=== PATIENT | female | born 1965 | race Caucasian/White ===

== ENCOUNTER 2017-03-04 15:24 | Emergency (ER) | payer OTHER ==
[~2017-03-04] VITALS: Ht 167.6 cm; Wt 81.6 kg
[~2017-03-04 15:24] MED LIST: PREDNISONE10 MG PO
--- NOTE | 2017-03-04 16:13 | RADIOLOGY REPORT ---
EXAMINATION: XR WRIST, RIGHT CLINICAL INFORMATION: Right wrist pain. Evaluate for fracture. COMPARISON: Right wrist films dated 04/25/2011. TECHNIQUE: AP, lateral, and oblique views of the right wrist. FINDINGS: There is a comminuted partially impacted transverse fracture of the distal radius with approximately one cortex width of radial displacement and dorsal angulation. No intra-articular extension of the fracture line is seen. The radiocarpal joint remains intact. There is slight widening of the radial ulnar joint, suggesting dissociation. Distal ulna appears intact, and the remainder of the bony structures is intact. Dorsal soft tissue swelling about the wrist is seen. IMPRESSION: 1. Comminuted partially impacted and mildly displaced transverse fracture of the distal radius is seen with dorsal angulation and overlying soft tissue swelling. 2. Suspect dissociation of the radioulnar joint.
--- NOTE | 2017-03-04 17:12 | ED HAND/WRIST INJURY COMPLAINT ---
History of Present Illness General Chief Complaint: Fall Stated Complaint: FALL, WRIST PAIN Source: patient, family Exam Limitations: no limitations Vital Signs & Intake/Output Vital Signs & Intake/Output Vital Signs Date Time Temp Pulse Resp B/P B/P Pulse O2 O2 Flow FiO2 Mean Ox Delivery Rate 03/04 1955 98.1 70 20 126/62 95 Room Air 03/04 1931 97.9 77 16 158/59 97 Room Air 03/04 1810 71 22 150/70 97 Room Air 03/04 1533 98.9 75 18 168/78 100 Room Air ED Intake and Output 03/05 0000 03/04 1200 Intake Total 120 Output Total Balance 120 Intake, Oral 120 Patient 180 lb Weight Weight Reported by Patient Measurement Method Allergies Coded Allergies: NO KNOWN ALLERGIES (03/04/17) Reconcile Medications Duloxetine HCl 30 MG CAPSULE.DR 1 CAP PO DAILY DEPRESSION (Reported) Fluoxetine HCl 20 MG CAPSULE 60 MG PO DAILY DEPRESSION (Reported) Oxycodone HCl/Acetaminophen (Percocet 5-325 MG Tablet) 5 MG-325 MG TABLET 1 TAB PO Q6H PRN PAIN Triage Note: PT TO ED FOR R WRIST PAIN AFTER FALLING HANDS FIRST INTO GRASS, OBVIOUS DEFORMITY, +ULNAR AND RADIAL PULSES, HAND WARM TO TOUCH. PLACED IN SPLINT IN TRIAGE, MEDICATED WITH 600 MG MOTRIN AND GIVE ICE PACK. Triage Nurses Notes Reviewed? yes HPI: Patient is a 52-year-old female presents complaining of right wrist pain status post fall. Patient was playing outside this afternoon when she fell onto her right outstretched hand. Pain is currently 6 out of 10. Patient is right-hand dominant. Patient reports mild numbness that radiates into her fingers. Patient denies head injury, neck pain, loss of consciousness. (SARAH ARMSTRONG) Past History Travel History Traveled to [place] past 21 day No Medical History Any Pertinent Medical History? see below for history Neurological: NONE EENT: NONE Cardiovascular: NONE Respiratory: NONE Gastrointestinal: NONE Hepatic: NONE Renal: NONE Musculoskeletal: wrist fracture Psychiatric: depression Endocrine: NONE Blood Disorders: NONE Cancer(s): NONE PUMPER GAGER/Reproductive: NONE Influenza Vaccine: 09/13/15 Surgical History Surgical History: non-contributory Psychosocial History What is your primary language Beninese Tobacco Use: Never used ETOH Use: occasional use Illicit Drug Use: denies illicit drug use Family History Hx Contributory? No (SARAH ARMSTRONG) Review of Systems Review of Systems Constitutional: Reports: no symptoms. Respiratory: Reports: no symptoms. Cardiovascular: Denies: chest pain. GI: Denies: abdominal pain. Musculoskeletal: Reports: see HPI. Neurological/Psychological: Denies: paresthesia. Hematologic/Endocrine: Denies: bruising, bleeding. Immunologic/Allergic: Denies: splenectomy. (SARAH ARMSTRONG) Physical Exam Physical Exam General Appearance: well developed/nourished, alert, awake Head: atraumatic, normal appearance Eyes: Bilateral: normal appearance. Ears, Nose, Throat: hearing grossly normal Neck: normal inspection, supple, full range of motion, no midline tenderness Cardiovascular/Respiratory: no respiratory distress Back: normal inspection, normal range of motion, no vertebral tenderness Elbow Right: normal range of motion, normal inspection, nontender Wrist Right: deformity of right wrist. Radial and ulnar pulses 2+. Hand Left: normal inspection, normal range of motion Hand Right: sensation normal in fingers to light touch Neurologic/Tendon: normal sensation Skin: capillary refill normal in right hand and fingers (SARAH ARMSTRONG) Progress Differential Diagnosis: contusion, compartment syndrome, dislocation, fracture, sprain Plan of Care: Orders Procedure Date/time Status Durable Medical Equipment 03/04 2007 Active 1722: Discussed with Dr. Chawla: try to improve alignment with reduction, can use hematoma block. Place in sugar tong splint and have follow up closely. 1800: Attempted hematoma block. Area was prepped with chlorhexidine prep. 5 mL of 1% lidocaine were injected. Patient had severe pain during injection of lidocaine. Procedure was aborted. Will perform under moderate sedation. Discussed with Dr. Loera. See moderate sedation consent and paperwork. (SARAH ARMSTRONG) Diagnostic Imaging: Viewed by Me: Radiology Read. Discussed w/RAD: Radiology Read. Radiology Impression: PATIENT: EDIE BURRELL PRESENT AGE: 52 PATIENT ACCOUNT NO: [id number] : 63 LOCATION: [facility] ORDERING PHYSICIAN: NI RICHARDS DO SERVICE DATE: 03/04/17-0599 EXAM TYPE: RAD - XRY-WRIST COMPLETE-RIGHT EXAMINATION: XR WRIST, RIGHT CLINICAL INFORMATION: Right wrist pain. Evaluate for fracture. COMPARISON: Right wrist films dated . TECHNIQUE: AP, lateral, and oblique views of the right wrist. FINDINGS: There is a comminuted partially impacted transverse fracture of the distal radius with approximately one cortex width of radial displacement and dorsal angulation. No intra-articular extension of the fracture line is seen. The radiocarpal joint remains intact. There is slight widening of the radial ulnar joint, suggesting dissociation. Distal ulna appears intact, and the remainder of the bony structures is intact. Dorsal soft tissue swelling about the wrist is seen. IMPRESSION: 1. Comminuted partially impacted and mildly displaced transverse fracture of the distal radius is seen with dorsal angulation and overlying soft tissue swelling. 2. Suspect dissociation of the radioulnar joint. DICTATED BY: GLORIA DANIELS MD DATE/TIME DICTATED:03/04/171606 CHEMICAL PRODUCTION TECHNICIAN:DONNIE DATE/TIME TRANSCRIBED:03/04/171606 CONFIDENTIAL, DO NOT COPY WITHOUT APPROPRIATE AUTHORIZATION. <Electronically signed in Other Vendor System> SIGNED BY: GLORIA DANIELS MD 03/04/17 1613, PATIENT: EDIE BURRELL PRESENT AGE: 52 PATIENT ACCOUNT NO: [id number] : 63 LOCATION: [facility] ORDERING PHYSICIAN: SARAH LAMB SERVICE DATE: 03/04/17 EXAM TYPE: RAD - XRY-WRIST 2 VIEWS RIGHT EXAMINATION: XR WRIST, RIGHT CLINICAL INFORMATION: Post reduction distal radial fracture COMPARISON: 03/04/2017 x-ray at 3:48 PM TECHNIQUE: AP and lateral views of the right wrist. FINDINGS: Comminuted distal radial fracture again noted. The alignment at the fracture site is anatomic. Soft tissue swelling present. Superimposed cast present. IMPRESSION: Status post reduction of distal right radial fracture with anatomical alignment. DICTATED BY: ENRIQUE PHILLIPS MD DATE/ TIME DICTATED:03/04/172019 CHEMICAL PRODUCTION TECHNICIAN:DONNIE DATE/TIME TRANSCRIBED: 03/04/172019 CONFIDENTIAL, DO NOT COPY WITHOUT APPROPRIATE AUTHORIZATION. < Electronically signed in Other Vendor System> SIGNED BY: ENRIQUE PHILLIPS MD 03/04/17 20 (MELLY LAMB,SARAH) Departure Departure Time of Disposition: 2007 Disposition: HOME OR SELF CARE Condition: Stable Clinical Impression Primary Impression: Distal radius fracture, right Qualifiers: Encounter type: initial encounter Fracture type: closed Fracture morphology: unspecified fracture morphology Qualified Code: S52.501A - Unspecified fracture of the lower end of right radius, initial encounter for closed fracture Referrals: EZE VELA (PCP/Family) MARY JO ENGLISH,JUAN Wilson Additional Instructions: Wear splint until you are seen by the orthopedist. Call Dr. Chawla(orthopedist) to be seen early next week for further evaluation. Return to the ER if numbness in your hand, discoloration of fingers, pain uncontrollable or worsening of symptoms. Departure Forms: Customer Survey General Discharge Information Prescriptions: Current Visit Scripts Oxycodone HCl/Acetaminophen (Percocet 5-325 MG Tablet) 1 TAB PO Q6H PRN PAIN #12 TAB (SARAH ARMSTRONG) PA/NETWORK ARCHITECT Co-Sign Statement Statement: ED Attending supervision documentation- x I saw and evaluated the patient. I have also reviewed all the pertinent lab results and diagnostic results. I agree with the findings and the plan of care as documented in the PA's/NETWORK ARCHITECT's documentation. [] I have reviewed the ED Record and agree with the PA's/NETWORK ARCHITECT's documentation. [] Additions or exceptions (if any) to the PAs/NETWORK ARCHITECT's note and plan are summarized below: [] (ADEEL LOERA MD) Procedures Splinting Manual Alignment Performed: Yes Hand-Made Type: orthoglass Splint: sugar-tong Splint Applied By: splint applied by me Pre-Proc Neuro Vasc Exam: normal Post-Proc Neuro Vasc Exam: normal Joint Reduction Joint Reduction Site: right wrist Conscious Sedation: conscious sedation, performed by Dr. Loera Reduction Attempts: 1 Pre-Procedure NV Exam: Yes Post-Procedure NV Exam: Yes Post Joint Reduction Film: joint reduced Procedural Sedation Sedation Type: moderate Indication: wrist fracture Prior Complications: none Airway: normal anatomy Preparation: plan explained to patient, hospital consent signed, oximetry during procedure, capnometry during procedu, IV access obtained, suction immediately avail, cardiac technologist used Sedation: etomidate, fentanyl Complications During/After Procedure: none Post Sedation Score: see sedation record I personally performed: procedure (sedation by Dr. Loera) Intra-Service Time: 30 minutes or less (SARAH ARMSTRONG) Procedural Sedation ASA Classification: P1 Mallampati Classification: Class 2 (ADEEL LOERA MD)
[2017-03-04] MEDS ORDERED: DULOXETINE HCL30 MG PO (19:33)
[2017-03-04] MEDS ORDERED: FLUOXETINE HCL20 M2 PO (19:33)
[2017-03-04 19:55] VITALS: BP 126/62
[2017-03-04] MEDS ORDERED: PERCOCET 5-3251 EACH PO (20:07)
--- NOTE | 2017-03-04 20:26 | RADIOLOGY REPORT ---
EXAMINATION: XR WRIST, RIGHT CLINICAL INFORMATION: Post reduction distal radial fracture COMPARISON: 03/04/2017 x-ray at 3:48 PM TECHNIQUE: AP and lateral views of the right wrist. FINDINGS: Comminuted distal radial fracture again noted. The alignment at the fracture site is anatomic. Soft tissue swelling present. Superimposed cast present. IMPRESSION: Status post reduction of distal right radial fracture with anatomical alignment.
== END 2017-03-04 20:19 ==
LOC: ERH 15:24
DX: S52.501A Unspecified fracture of the lower end of right radius, initial encounter for closed fracture (principal); W19.XXXA Unspecified fall, initial encounter; Y92.9 Unspecified place or not applicable; Y93.9 Activity, unspecified
CPT/HCPCS: 73100-RT; 73110-RT; 96374; 96375